=== PATIENT | female | born 1990 | race Caucasian/White ===

== ENCOUNTER 2021-03-16 17:42 | Emergency (ER) | payer SELFPAY ==
[2021-03-16 17:44] VITALS: BP 144/83; PULSE 111; RESP 20; TEMP 36.7; O2SAT 100; BMI 24.8
--- NOTE | 2021-03-16 18:27 | ED_ITS ---
HPI - Allergic Reaction General Chief complaint: Allergic Reaction Stated complaint: allergic reaction Time Seen by Provider: 03/16/21 18:12 Source: patient Mode of arrival: ambulatory Limitations: no limitations History of Present Illness HPI narrative: 31-year-old female presents for a feeling of her throat closing throat tightness feeling dizzy and nauseous after eating crab meat 4 hours ago. At 1:30 p.m. patient ate crab meat, half an hour later she felt her heart rate go up and that her throat was closing. Last week patient ate shellfish and felt that she had trouble breathing, it was hard to swallow, and she was shivering. This lasted 5 hours, and then the symptoms went away and she was never seen by a provider Patient did take Benadryl prior to arrival, she has no history of anaphylaxis MD complaint: allergic reaction Onset (ago): hour(s) (4) Exposure: food Known history of allergy to: none Symptoms: difficulty breathing, dizziness and nausea Severity: moderate Treatment prior to arrival: benadryl Previous Allergic Reaction History: none Related Data Previous Rx's Medication Instructions Recorded famotidine 20 mg tablet 20 mg PO BEDTIME 7 Days #7 tab 03/16/21 prednisone 20 mg tablet 40 mg PO DAILY 5 Days #10 tab 03/16/21 Allergies Allergy/AdvReac Type Severity Reaction Status Date / Time shellfish derived Allergy Difficulty Verified 03/16/21 19:41 Swallowing Review of Systems Constitutional: Constitutional: Denies body ache(s), Denies chills, Denies fatigue, Denies fever(s), Denies headache(s), Denies malaise and Denies weakness Eyes: Eyes: Denies diplopia ENT: Denies vertigo, Reports dizziness, Denies otalgia, Denies headache(s), Denies mouth pain, Denies post nasal drip, Denies sinus pain, Denies sinus pressure, Denies sore throat and Reports throat swelling Cardiovascular: Cardiovascular: Denies chest pain, Denies syncope, Denies leg edema, Denies lightheadedness, Denies Loss of Consciousness, Denies palpitations and Denies dyspnea Respiratory: Respiratory: Denies chest congestion, Denies cough and Denies dyspnea Gastrointestinal: Gastrointestinal: Denies abdominal pain, Denies hematochezia, Denies constipation, Denies diarrhea, Reports nausea and Denies vomiting Comments: Hard to swallow Musculoskeletal: Musculoskeletal: Reports no additional musculoskeletal complaints Integumentary/Breasts: Skin/Breast: Denies erythema and Denies rash Neurologic: Denies confusion, Denies vertigo, Reports dizziness, Denies syncope, Denies headache(s) and Denies weakness Psychiatric: Psychiatric: Reports anxiety, Denies confusion and Denies depression Endocrine: Endocrine: Denies fatigue and Denies palpitations Allergic/Immunologic: Allergic/Immunologic: Reports throat swelling PMFSH Past Medical History Medical History FH: cholecystectomy Kidney stone Social History Social History Advance Directives: No Advance Directives Information Provided: No Patient : No Physical Exam Vital Signs: Vital Signs: Last Vital Signs Temp 98.0 F 03/16/21 17:44 Pulse 76 03/16/21 19:20 Resp 16 03/16/21 19:20 BP 121/67 03/16/21 19:20 Pulse Ox 99 03/16/21 19:20 Body Mass Index 24.8 Const: General: No confusion Nutritional Appearance: well nourished Orientation/consciousness: No confusion Limitations: no limitations HENMT: Head: Yes normal to inspection, Yes normocephalic and Yes atraumatic Ears: hearing grossly normal bilaterally, external ears normal, TM's normal bilaterally and EAC's normal General nose exam: Normal external nose present Face and sinus: Yes normal facial exam and Yes sinuses nontender Mouth: Normal oral and palatal mucosa present Throat: Yes posterior oropharynx normal Eyes: Conjunctivae: conjunctivae normal Pupils: Equal, round and reactive pupils present EOM: EOMs intact bilaterally Neck: Neck: Yes full ROM, Yes no lymphadenopathy and Yes supple Resp: Effort & Inspection: normal respiratory effort and able to speak in complete sentences Auscultation: clear to auscultation bilaterally, no crackles, no rales, no rhonchi and no wheezes Cardio: Rate: regular rate Rhythm: regular rhythm Heart sounds: S1 normal heart sound present and S2 normal heart sound present GI: Inspection: Yes normal to inspection Palpation (GI): Soft to palpation, nontender, no guarding and not rigid Percussion: Yes normal to percussion Auscultation: normal bowel sounds Skin: General skin exam: no rashes or lesions noted Neuro: General: No confusion Cranial nerves: Yes Equal, round and reactive pupils present Extrem: General: Yes normal to inspection and Yes full ROM Psych: Appearance: grossly normal Affect: normal affect Attitude: cooperative Thought process: Normal thought process present Course Course Course Narrative: 31-year-old female with a reported allergic reaction to crab meat 4 hours ago. Patient reports that her lips feel heavy, she initially felt dizzy and nauseous but she drank a lot of water in those symptoms resolved. She felt her heart rate go up and felt that her throat was closing. On exam, patient is shivering and anxious. Her airways patent, lungs clear to auscultation, no wheezing, patient has pallor around the outside of her left she is hyperventilating. Treated patient with Benadryl, Pepcid, prednisone, and lorazepam. On re-examine, patient is feeling much better, she is not shaking, and feels that she is breathing fine. Send patient home on prednisone, Pepcid, Benadryl, counseled patient to call her PCP for referral to an semaphore operator Discharge Plan Discharge Clinical Impression: Allergic reaction Qualifiers: Encounter type: initial encounter Qualified Code(s): T78.40XA - Allergy, unspecified, initial encounter Patient Disposition: Home, Self-Care Instructions: Anaphylaxis (ED), General Allergic Reaction (ED), Allergy Testing (ED) Additional Instructions: Please call your primary care on Thursday, I would like you to be evaluated for allergies from an semaphore operator. Please take the 3 medications. Prednisone and famotidine are prescribed, you may take 25 mg of Benadryl over the counter 3 times a day for the next 3 days. If you have lip swelling, throat swelling, shortness of breath, wheezing, or any other new or concerning symptoms please return to the emergency room. Prescriptions: New prednisone 20 mg tablet 40 mg PO DAILY 5 Days Qty: 10 RF: 0 famotidine 20 mg tablet 20 mg PO BEDTIME 7 Days Qty: 7 RF: 0 Interventions: ED Discharge Assessment Last Done: 03/16/21 19:44 Discharge Date/Time: 03/16/21 19:47
[2021-03-16 18:29] VITALS: PULSE 83; RESP 16; O2SAT 98
[2021-03-16] MEDS: LORazepam 1 MG TABLET 2 MG PO (18:37)
[2021-03-16] MEDS: Famotidine 20 MG TABLET PO (18:38)
[2021-03-16] MEDS: predniSONE 20 MG TABLET 60 MG PO (18:38)
[2021-03-16] MEDS: diphenhydrAMINE HCL 25 MG TABLET PO (18:38)
[2021-03-16 19:20] VITALS: BP 121/67; PULSE 76; RESP 16; O2SAT 99
== END 2021-03-16 19:47 | disposition home or self-care (01) ==
PROVIDERS: Emergency Provider Internal Medicine
DX: T78.40XA Allergy, unspecified, initial encounter (principal); X58.XXXA Exposure to other specified factors, initial encounter; R42 Dizziness and giddiness; R11.0 Nausea
CPT/HCPCS: 99283; 99284; Q0163